=== PATIENT | female | born 1965 | race Caucasian/White ===

== ENCOUNTER → 2022-01-07 | Outpatient (CLI) | payer BC ==
[~2022-01-07] MED LIST: ACID CONTROLLER20 MG PO; AJOVY225 MG/1.5 SQ; ALLERGY RELIEF60 MG PO; ASPIRIN EC81 MG PO; BENADRYL 25MG C25 MG PO; BENZTROPINE MESY1 MG PO; BRINTELLIX20 MG PO; CYMBALTA 20 MG20 MG PO; HYDROCHLOROTHIA25 MG PO; HYDROCODON-ACE1 EAC6 PO; MAGNESIUM400 MG PO; METOPROLOL SUCC50 MG PO; NITROSTAT 0.40.4 MG SL; POTASSIUM CHLO10 ME1 PO; PRAVASTATIN SOD80 MG PO; PREDNISONE10 M1 PO; QULIPTA10 MG PO; REXULTI 2 MG PO; TIZANIDINE HCL4 MG PO; TOPAMAX 100 MG100 MG PO; TRAZODONE HCL100 MG PO; UBRELVY100 MG PO; ULTRAM50 MG PO; VITAMIN B-1100 MG/ML IM; VITAMIN D 40400 UNIT PO; VORT20TA PO; XANAX0.5 MG PO
== END ==
LOC: KOH-I 08:35
DX: S82.851D Displaced trimalleolar fracture of right lower leg, subsequent encounter for closed fracture with routine healing (principal)
CPT/HCPCS: 73610